=== PATIENT | female | born 1955 | race Caucasian/White ===

== ENCOUNTER 2020-03-18 08:43 | Inpatient (IN) | payer MEDICARE, OTHER ==
[~2020-03-18] VITALS: Ht 167.6 cm; Wt 47.6 kg
[~2020-03-18 08:43] MED LIST: AMLO-212 PO; DICL100G34 TP; GABA-532 PO; LISI10TA5 PO; METO25TA20 PO; OMEP20CA15 PO; SIMV-49 PO; [UNRECOGNIZED DRUG - CODE] PO
--- NOTE | 2020-03-18 12:25 | NUR ---
Family Contact: SW contacted pts friend, Oksana Kirby ([phone]), who stated that she has not been very involved in the pts life but she does know that the pt has a supervisor case loading. SW inquired about placement and she stated that the pt is homeless.
--- NOTE | 2020-03-18 12:30 | NUR ---
diamond die maker note:Admitted a 65 y/o female on 5150 hold for DTS and GD ,per 5150 hold endorsing recent suicide attempt 4 days ago via 35 gabapentin residential case manager recommended coming to er complained of loneliness because limited family support ,she has no viable plan for self care. Patient has hx of HTN,Arthritis ,Gastric Ulcer ,hx of Fall .Patient on fall precaution ,allergy to codeine ,buspirone hydrocodone ,prednisone.Patient ambulatory with unsteady gait . and notified with admission orders ,patient seen by .Upon face to face assessment patient is alert and oriented x3 ,disorganized thoughts easily irritable denies si at this time ,disheveled and unkempt ,mood depressed fat affect ,patient stated " I wanted to kill myself and I hate myself,I am lonely ". Patient has discoloration in brigette upper and lower extremities .All belongings checked by staff ,patient's right hand book given and explained to patient able to verbalize understanding .Place patient on q15 minutes safety check.
--- NOTE | 2020-03-18 12:46 | NUR ---
Initial Discharge Plan: Pt is currently homeless and states that she wants to be placed in a nursing facility. SW will work with the pt and the MD regarding appropriate discharge planning. SW will form a safe and proper discharge.
[2020-03-18] MEDS ORDERED: MAG HYDROX/AL HYDROX/SIMETH 30 ML UDC PO PRN (13:00)
[2020-03-18] MEDS ORDERED: MAGNESIUM HYDROXIDE 30 ML UDC PO PRN (13:00)
[2020-03-18] MEDS ORDERED: ACETAMINOPHEN 325 MG TABLET PO PRN (13:00)
[2020-03-18] MEDS ORDERED: BLOOD SUGAR DIAGNOSTIC 1 EACH STRIP IN ONE (13:00)
[2020-03-18] MEDS ORDERED: NAPR-1009 PO (14:20)
[2020-03-18] MEDS ORDERED: PANT40TA49 PO (14:20)
[2020-03-18] MEDS ORDERED: SERT100T PO (14:21)
[2020-03-18 18:09] VITALS: BP 144/72
[2020-03-18 20:32] VITALS: BP 120/65
[2020-03-18] MEDS ORDERED: GABAPENTIN 100 MG CAPSULE PO SCH (21:00)
[2020-03-18] MEDS: METOPROLOL TARTRATE 25 MG TABLET PO SCH (21:12)
[2020-03-18] MEDS: SIMVASTATIN 20 MG TABLET PO SCH (21:13)
[2020-03-18] MEDS: ZOLPIDEM TARTRATE 5 MG TABLET PO PRN (21:28)
--- NOTE | 2020-03-18 21:28 | NUR ---
GPS RN NOTE: INSOMNIA PT C/O OF INABILITY TO SLEEP, REQUESTED DAVID, PT VSS AT THIS TIME, ADMIN AMBIEN 5 MG PRN @ 2127, WILL REASSESS AND CONTINUE TO MONITOR Q15MIN FOR SAFETY AND BEHAVIOR,.
[2020-03-19 06:24] LABS: BASOPHILS # (AUTO) 0.1 /CMM (0.0-0.2); BASOPHILS % (AUTO) 0.8 % (0.0-2.0); EOSINOPHILS % (AUTO) 8.4 % (0.0-6.0); HEMATOCRIT 29 % (33-45); LYMPHOCYTES # (AUTO) 2.1 /CMM (0.8-4.8); LYMPHOCYTES % (AUTO) 27.8 % (20.0-44.0); MEAN CORPUSCULAR HGB CONC 34 g/dl (31.0-36.0); MEAN CORPUSCULAR VOLUME 93 fL (82-100); MONOCYTES # (AUTO) 0.7 /CMM (0.1-1.30); MONOCYTES % (AUTO) 8.6 % (2.0-12.0); NEUTROPHILS # (AUTO) 4.2 /CMM (1.8-8.9); NEUTROPHILS % (AUTO) 54.4 % (43.0-81.0); PLATELET COUNT (AUTO) 345 /CMM (150-450); RED BLOOD CELL COUNT(AUTO) 3.15 MIL/uL (4.0-5.2); WHITE BLOOD COUNT (AUTO) 7.7 K/uL (4.3-11.0)
[2020-03-19] MEDS: PANTOPRAZOLE 40 MG TABLET.DR PO SCH (06:33)
[2020-03-19 06:37] LABS: CREATININE 1.3 mg/dL (0.6-1.3); PHOSPHORUS 4.1 mg/dL (2.5-4.9)
[2020-03-19 06:40] LABS: THYROID STIMULATING HORMONE 1.655 uIU/mL (0.358-3.74)
[2020-03-19] MEDS: NAPROXEN 500 MG TABLET PO SCH ×2 (08:11→16:13)
[2020-03-19] MEDS: AMLODIPINE BESYLATE 5 MG TABLET PO SCH (08:11)
[2020-03-19] MEDS: LISINOPRIL (10MG) 10 MG TABLET PO SCH (08:11)
[2020-03-19] MEDS: METOPROLOL TARTRATE 25 MG TABLET PO SCH ×2 (08:12→21:00)
[2020-03-19 08:23] VITALS: BP 137/80
--- NOTE | 2020-03-19 09:00 | NUR ---
RN NOTE- PT ALERT ORIENTED TO PERSON PLACE TIME AND PURPOSE. STATES SHE IS "DISGUSTED WITH MYSELF THAT I DRANK AGAIN" PT DENIES ACTIVE SI THOUGH STATES SHES'QUITE DEPRESSED" PO INTAKE GOOD MED COMPLIANT INTERACTIVE SELECTIVELY
[2020-03-19] MEDS: GABAPENTIN 100 MG CAPSULE PO SCH ×3 (09:06→16:13)
--- NOTE | 2020-03-19 09:59 | NUR ---
Substance Abuse Intervention: BRITTNEY conducted a substance abuse intervention with the pt due to her history of alcohol abuse.
--- NOTE | 2020-03-19 10:02 | NUR ---
SW Discharge Planning with MD: BRITTNEY spoke with the pts MD regarding pts discharge plan and he stated that he is not currently certain if the pt will be discharged to a rehab center or a SNF. He stated that he will work with the pt for a few more days and will inform the SW where to refer the pt.
--- NOTE | 2020-03-19 10:34 | NUR ---
RN NOTE- PT C/O DYSPEPSIA. MAALOX 30ML GIVEN AT THIS TIME
[2020-03-19] MEDS: SERTRALINE HCL 50 MG TABLET PO SCH (16:07)
[2020-03-19 16:09] VITALS: BP 104/44
[2020-03-19 20:22] VITALS: BP 113/44
[2020-03-19] MEDS: ZOLPIDEM TARTRATE 5 MG TABLET PO PRN (21:08)
[2020-03-19] MEDS: SIMVASTATIN 20 MG TABLET PO SCH (21:08)
--- NOTE | 2020-03-19 21:09 | NUR ---
GPS RN NOTE: DID NOT GIVE PT HER SCHEDULED METOPROLOL, PT B/P WAS 96/62, HR 67, PT STATED THATS A LITTLE LOW FOR ME I RATHER TAKE THE AMBIEN AND HOLD THE BP MED. NO DISTRESS NOTED, ADMIN AMBIEN @ 9061, WILL REASSESS AND CONTINUE TO MONITOR Q15MIN FOR SAFETY AND BEHAVIOR.
[2020-03-19 21:11] VITALS: BP 95/62
[2020-03-20] MEDS: PANTOPRAZOLE 40 MG TABLET.DR PO SCH (06:31)
[2020-03-20 08:00] VITALS: BP 135/74
[2020-03-20] MEDS: NAPROXEN 500 MG TABLET PO SCH ×2 (09:38→17:13)
[2020-03-20] MEDS: SERTRALINE HCL 50 MG TABLET PO SCH (09:38)
[2020-03-20] MEDS: AMLODIPINE BESYLATE 5 MG TABLET PO SCH (09:38)
[2020-03-20] MEDS: LISINOPRIL (10MG) 10 MG TABLET PO SCH (09:39)
[2020-03-20] MEDS: METOPROLOL TARTRATE 25 MG TABLET PO SCH ×2 (09:39→21:00)
[2020-03-20] MEDS: GABAPENTIN 100 MG CAPSULE PO SCH ×3 (09:39→17:13)
--- NOTE | 2020-03-20 10:00 | NUR ---
Individual Intervention with the pt: SW met with the pt at bedside and assessed the pt for suicidality. Pt stated that she does not currently have suicidal ideation with a plan but states that she needs help. Pt states that she feels alone after all of her family has passed and that she does not have any resources. Pt states that she no longer has a car and that she has no where to go. Pt states that she spent 71 days at [facility] but then she went to to a sober living and relapsed before getting kicked out. Pt states that this time she would like to try a SNF.
[2020-03-20] MEDS: LORAZEPAM 0.5 MG TABLET PO PRN (14:30)
--- NOTE | 2020-03-20 14:31 | NUR ---
RN NOTE:Patient c/o anxiety medicated with ativan 1mg po x1 will continue to monitor .
[2020-03-20 17:00] VITALS: BP 104/58
[2020-03-20 20:45] VITALS: BP 92/49
[2020-03-20] MEDS: SIMVASTATIN 20 MG TABLET PO SCH (21:05)
--- NOTE | 2020-03-20 21:07 | NUR ---
GPS-RN NOTE: BP MED HELD METOPROLOL 25MG PO HELD D/T DECREASED BP. Addendum: 03/20/20 at 2236 by URI LICONA RN BP 92/49 PULSE 60
[2020-03-20 21:28] VITALS: BP 107/71
[2020-03-20] MEDS: ZOLPIDEM TARTRATE 5 MG TABLET PO PRN (21:32)
--- NOTE | 2020-03-20 21:32 | NUR ---
GPS-RN NOTE: PATIENT C/O INABILITY TO SLEEP. ADMINISTERED AMBIEN 5MG PO ORDERED PER PT'S REQUEST. WILL CONTINUE TO MONITOR FOR PATIENT'S SAFETY.
[2020-03-21] MEDS: PANTOPRAZOLE 40 MG TABLET.DR PO SCH (07:21)
[2020-03-21 08:00] VITALS: BP 108/63
[2020-03-21] MEDS: SERTRALINE HCL 50 MG TABLET PO SCH (08:15)
[2020-03-21] MEDS: NAPROXEN 500 MG TABLET PO SCH ×2 (08:15→16:55)
[2020-03-21] MEDS: METOPROLOL TARTRATE 25 MG TABLET PO SCH ×2 (08:15→21:00)
[2020-03-21] MEDS: LISINOPRIL (10MG) 10 MG TABLET PO SCH (08:16)
[2020-03-21] MEDS: AMLODIPINE BESYLATE 5 MG TABLET PO SCH (08:16)
[2020-03-21] MEDS: GABAPENTIN 100 MG CAPSULE PO SCH ×3 (08:17→16:34)
[2020-03-21] MEDS: LORAZEPAM 0.5 MG TABLET PO PRN (12:35)
--- NOTE | 2020-03-21 12:38 | NUR ---
RN-CO: ATIVAN 1 MG PO GIVEN FOR C/O ANXIETY M/B RESTLESSNESS.
--- NOTE | 2020-03-21 14:05 | NUR ---
SNF Referral: BRITTNEY faxed a referral to the following two facilities listed below: [facility] with attn to Monet to the fax number: [phone] [facility] with attn to Daniella to the fax number: [phone]. Addendum: 03/26/20 at 1017 by DINESH WILLIAMSON [facility] unable to accept patient's due to lockdown. [facility] unable to accept due to only accepting COVID positive patients.
--- NOTE | 2020-03-21 14:06 | NUR ---
RN-CO: PER DR JILLIAN NEAL ORDER ENSURE LIVE BID, NOTED.
[2020-03-21 16:00] VITALS: BP 121/82
[2020-03-21] MEDS: ENSURE ENLIVE CHOC 237 ML CAN PO SCH (17:00)
--- NOTE | 2020-03-21 19:30 | NUR ---
GPS RN NOTE, RECEIVED PATIENT AWAKE AND IN BED, NO S/S OR COMPLAINTS OF PAIN AT THIS TIME. PATIENT IS DISPLAYING NO S/S OF APPARENT DISTRESS AT THIS TIME. PATIENT BREATHING IS UNLABORED WITH EQUAL RISE AND FALL OF THE CHEST. PATIENT IS ALERT AND ORIENTED X 4 ON ROOM AIR WITH A SPO2 98%. PATIENT IS COMPLIANT WITH MEDICATIONS, ANXIOUS AT TIMES, INTERACTIVE, AND COOPERATIVE. PATIENT DENIES SUICIDAL AND HOMICIDAL IDEATIONS AT THIS TIME. PATIENT ASSISTED WITH TURNING AND REPOSITIONING Q2HR AND PRN FOR COMFORT AND CIRCULATION. PATIENT HAS NO NEEDS AT THIS TIME. PATIENT EDUCATED ON THE USE OF THE CALL PATEL. PATIENT BED SIDE RAILS UP X 2 FOR SAFETY. PATIENT BED IS LOCKED, LOW, WITH BED ALARM ON. WILL CONTINUE TO MONITOR THIS PATIENT Q15 MINUTES WITH THE HELP OF STAFF TO MAINTAIN SAFETY.
[2020-03-21 19:35] VITALS: BP 132/67
[2020-03-21] MEDS: SIMVASTATIN 20 MG TABLET PO SCH (21:00)
[2020-03-21] MEDS: ZOLPIDEM TARTRATE 5 MG TABLET PO PRN (21:38)
--- NOTE | 2020-03-21 21:38 | NUR ---
GPS RN NOTE, PATIENT HAS A COMPLAINT OF NOT BEING ABLE TO SLEEP AND IS REQUESTING AMBIEN AT THIS TIME. PATIENT VITAL SIGNS ARE STABLE. GAVE AMBIEN 5MG PO HS PRN ORDERED. WILL REASSESS FOR INSOMNIA AND I WILL CONTINUE TO MONITOR THIS PATIENT.
[2020-03-22] MEDS: PANTOPRAZOLE 40 MG TABLET.DR PO SCH (07:33)
[2020-03-22 08:00] VITALS: BP 111/63
[2020-03-22] MEDS: ENSURE ENLIVE CHOC 237 ML CAN PO SCH ×2 (08:06→16:03)
[2020-03-22] MEDS: NAPROXEN 500 MG TABLET PO SCH ×2 (08:37→16:03)
[2020-03-22] MEDS: METOPROLOL TARTRATE 25 MG TABLET PO SCH ×2 (08:38→21:03)
[2020-03-22] MEDS: AMLODIPINE BESYLATE 5 MG TABLET PO SCH (08:38)
[2020-03-22] MEDS: GABAPENTIN 100 MG CAPSULE PO SCH ×3 (08:38→16:03)
[2020-03-22] MEDS: LISINOPRIL (10MG) 10 MG TABLET PO SCH (08:38)
[2020-03-22] MEDS: SERTRALINE HCL 50 MG TABLET PO SCH (08:38)
--- NOTE | 2020-03-22 09:00 | NUR ---
RN NOTE- PT ALERT ORIENTED TO PERSON PLACE TIME PURPOSE, PO INTAKE, MED COMPLIANT DENIES ALL AT PRESENT ISOLATIVE DEPRESSED
--- NOTE | 2020-03-22 11:00 | NUR ---
ERIBERTO NOTE-MN Addendum: 03/22/20 at 1103 by KUNAL SANDRA RN ERIBERTO NOTE- C/O ANXIETY. ATIVAN 1MG GIVEN
[2020-03-22] MEDS: LORAZEPAM 0.5 MG TABLET PO PRN (11:02)
[2020-03-22 16:00] VITALS: BP 123/69
--- NOTE | 2020-03-22 19:30 | NUR ---
GPS RN NOTE, RECEIVED PATIENT AWAKE AND IN BED, NO S/S OR COMPLAINTS OF PAIN AT THIS TIME. PATIENT IS DISPLAYING NO S/S OF APPARENT DISTRESS AT THIS TIME. PATIENT BREATHING IS UNLABORED WITH EQUAL RISE AND FALL OF THE CHEST. PATIENT IS ALERT AND ORIENTED X 4 ON ROOM AIR WITH A SPO2 99%. PATIENT IS COMPLIANT WITH MEDICATIONS, ANXIOUS AT TIMES, INTERACTIVE, AND COOPERATIVE. PATIENT DENIES SUICIDAL AND HOMICIDAL IDEATIONS AT THIS TIME. PATIENT ASSISTED WITH TURNING AND REPOSITIONING Q2HR AND PRN FOR COMFORT AND CIRCULATION. PATIENT HAS NO NEEDS AT THIS TIME. PATIENT EDUCATED ON THE USE OF THE CALL PATEL. PATIENT BED SIDE RAILS UP X 2 FOR SAFETY. PATIENT BED IS LOCKED, LOW, WITH BED ALARM ON. WILL CONTINUE TO MONITOR THIS PATIENT Q15 MINUTES WITH THE HELP OF STAFF TO MAINTAIN SAFETY.
[2020-03-22] MEDS: SIMVASTATIN 20 MG TABLET PO SCH (21:02)
[2020-03-22] MEDS: ZOLPIDEM TARTRATE 5 MG TABLET PO PRN (21:35)
[2020-03-23] MEDS: PANTOPRAZOLE 40 MG TABLET.DR PO SCH (07:12)
[2020-03-23] MEDS: ENSURE ENLIVE CHOC 237 ML CAN PO SCH ×2 (07:49→17:27)
[2020-03-23 08:00] VITALS: BP 112/62
[2020-03-23] MEDS: NAPROXEN 500 MG TABLET PO SCH ×2 (08:08→16:03)
[2020-03-23] MEDS: AMLODIPINE BESYLATE 5 MG TABLET PO SCH (08:08)
[2020-03-23] MEDS: SERTRALINE HCL 50 MG TABLET PO SCH (08:08)
[2020-03-23] MEDS: LISINOPRIL (10MG) 10 MG TABLET PO SCH (08:08)
[2020-03-23] MEDS: GABAPENTIN 100 MG CAPSULE PO SCH ×3 (08:08→16:03)
[2020-03-23] MEDS: METOPROLOL TARTRATE 25 MG TABLET PO SCH ×2 (08:09→21:00)
--- NOTE | 2020-03-23 10:10 | NUR ---
RN-CO: PT REQUESTED FOR ATIVAN FOR ANXIETY.
[2020-03-23] MEDS: LORAZEPAM 0.5 MG TABLET PO PRN ×2 (10:18→16:03)
--- NOTE | 2020-03-23 13:03 | NUR ---
RN-CO: DR WALSH MADE AWARE OF H&h LEVEL. NO NEW ORDERS AT THIS TIME.
[2020-03-23 16:00] VITALS: BP 119/61
--- NOTE | 2020-03-23 16:04 | NUR ---
RN-CO: PATIENT REQUESTED FOR ATIVAN 1MG PO FOR ANXIETY.
[2020-03-23 20:00] VITALS: BP 114/67
[2020-03-23] MEDS: SIMVASTATIN 20 MG TABLET PO SCH (21:00)
[2020-03-23 21:06] VITALS: BP 114/67
[2020-03-23] MEDS: ZOLPIDEM TARTRATE 5 MG TABLET PO PRN (21:25)
[2020-03-24] MEDS: PANTOPRAZOLE 40 MG TABLET.DR PO SCH (07:35)
[2020-03-24 08:00] VITALS: BP 100/61
[2020-03-24] MEDS: GABAPENTIN 100 MG CAPSULE PO SCH ×3 (08:03→16:19)
[2020-03-24] MEDS: METOPROLOL TARTRATE 25 MG TABLET PO SCH ×2 (08:04→20:40)
[2020-03-24] MEDS: NAPROXEN 500 MG TABLET PO SCH ×2 (08:04→16:19)
[2020-03-24] MEDS: AMLODIPINE BESYLATE 5 MG TABLET PO SCH ×2 (08:04→09:00)
[2020-03-24] MEDS: SERTRALINE HCL 50 MG TABLET PO SCH (08:05)
[2020-03-24] MEDS: LISINOPRIL (10MG) 10 MG TABLET PO SCH (08:05)
[2020-03-24] MEDS: ENSURE ENLIVE CHOC 237 ML CAN PO SCH ×2 (08:05→17:00)
[2020-03-24] MEDS: LORAZEPAM 0.5 MG TABLET PO PRN ×3 (10:07→23:17)
--- NOTE | 2020-03-24 10:07 | NUR ---
RN NOTE:Patient c/o anxiety medicated with ativan 1mg po x1.Will continue to monitor anxiety.
[2020-03-24 16:00] VITALS: BP 128/50
--- NOTE | 2020-03-24 16:20 | NUR ---
RN NOTE:PATIENT C/O ANXIETY MEDICATED WITH ATIVAN 1MG PO X1.
[2020-03-24 20:27] VITALS: BP 119/67
[2020-03-24] MEDS: SIMVASTATIN 20 MG TABLET PO SCH (21:05)
[2020-03-24] MEDS: ZOLPIDEM TARTRATE 5 MG TABLET PO PRN (21:30)
--- NOTE | 2020-03-24 21:30 | NUR ---
GPS-RN NOTE: INSOMNIA PATIENT C/O INABILITY TO SLEEP. ADMINISTERED AMBIEN 5MG PO ORDERED PER PT'S REQUEST. WILL CONTINUE TO MONITOR FOR PATIENT'S SAFETY.
--- NOTE | 2020-03-24 23:17 | NUR ---
GPS-RN NOTE: ANXIETY PATIENT C/O FEELING ANXIOUS. PATIENT REQUESTED FOR ATIVAN. ADMINISTERED ATIVAN 1MG PO ORDERED. WILL CONTINUE TO MONITOR FOR PATIENT'S SAFETY.
[2020-03-25] MEDS: PANTOPRAZOLE 40 MG TABLET.DR PO SCH (07:20)
[2020-03-25] MEDS: ENSURE ENLIVE CHOC 237 ML CAN PO SCH ×2 (07:39→17:07)
[2020-03-25] MEDS: SERTRALINE HCL 50 MG TABLET PO SCH (08:03)
[2020-03-25] MEDS: GABAPENTIN 100 MG CAPSULE PO SCH (08:03)
[2020-03-25] MEDS: NAPROXEN 500 MG TABLET PO SCH ×2 (08:03→16:03)
[2020-03-25] MEDS: LISINOPRIL (10MG) 10 MG TABLET PO SCH (08:04)
[2020-03-25] MEDS: METOPROLOL TARTRATE 25 MG TABLET PO SCH ×2 (08:04→21:14)
[2020-03-25] MEDS: AMLODIPINE BESYLATE 5 MG TABLET PO SCH (08:05)
[2020-03-25 08:11] VITALS: BP 114/70
[2020-03-25] MEDS: LORAZEPAM 0.5 MG TABLET PO PRN ×2 (09:48→22:23)
--- NOTE | 2020-03-25 09:48 | NUR ---
RNAdielCO: ATIVAN 1MG PO GIVEN FOR C/O ANXIETY.
[2020-03-25] MEDS: GABAPENTIN 300 MG CAPSULE PO SCH ×2 (12:06→16:03)
[2020-03-25 15:19] VITALS: BP 100/65
[2020-03-25] MEDS: ACETAMINOPHEN ES 500 MG TABLET PO PRN (16:37)
--- NOTE | 2020-03-25 16:41 | NUR ---
RN-CO: Patient requested for Tylenol ES for headache 06/29.
[2020-03-25] MEDS: SIMVASTATIN 20 MG TABLET PO SCH (21:13)
[2020-03-25] MEDS: ZOLPIDEM TARTRATE 5 MG TABLET PO PRN (21:14)
[2020-03-26] MEDS: PANTOPRAZOLE 40 MG TABLET.DR PO SCH (07:03)
[2020-03-26 08:00] VITALS: BP 110/45
[2020-03-26] MEDS: METOPROLOL TARTRATE 25 MG TABLET PO SCH ×2 (08:22→20:59)
[2020-03-26] MEDS: AMLODIPINE BESYLATE 5 MG TABLET PO SCH (08:23)
[2020-03-26] MEDS: LISINOPRIL (10MG) 10 MG TABLET PO SCH (08:23)
[2020-03-26] MEDS: NAPROXEN 500 MG TABLET PO SCH ×2 (08:24→16:01)
[2020-03-26] MEDS: ENSURE ENLIVE CHOC 237 ML CAN PO SCH ×2 (08:24→17:50)
[2020-03-26] MEDS: SERTRALINE HCL 50 MG TABLET PO SCH (08:24)
[2020-03-26] MEDS: GABAPENTIN 300 MG CAPSULE PO SCH ×3 (08:24→16:01)
[2020-03-26] MEDS: hydrOXYzine PAMOATE 25 MG CAPSULE PO PRN ×3 (10:32→22:31)
[2020-03-26 18:00] VITALS: BP 151/68
[2020-03-26] MEDS: SIMVASTATIN 20 MG TABLET PO SCH (20:59)
[2020-03-26] MEDS: ZOLPIDEM TARTRATE 5 MG TABLET PO PRN (20:59)
[2020-03-26 21:10] VITALS: BP 122/67
[2020-03-27] MEDS: PANTOPRAZOLE 40 MG TABLET.DR PO SCH (06:53)
[2020-03-27 07:42] VITALS: BP 95/55
[2020-03-27] MEDS: GABAPENTIN 300 MG CAPSULE PO SCH ×2 (08:13→16:07)
[2020-03-27] MEDS: NAPROXEN 500 MG TABLET PO SCH ×2 (08:13→16:07)
[2020-03-27] MEDS: LISINOPRIL (10MG) 10 MG TABLET PO SCH (08:14)
[2020-03-27] MEDS: METOPROLOL TARTRATE 25 MG TABLET PO SCH ×2 (08:15→21:00)
[2020-03-27] MEDS: SERTRALINE HCL 50 MG TABLET PO SCH (08:15)
[2020-03-27] MEDS: AMLODIPINE BESYLATE 5 MG TABLET PO SCH (08:15)
[2020-03-27] MEDS: hydrOXYzine PAMOATE 25 MG CAPSULE PO PRN ×3 (08:19→19:36)
[2020-03-27] MEDS: ENSURE ENLIVE CHOC 237 ML CAN PO SCH ×2 (08:28→17:00)
--- NOTE | 2020-03-27 12:13 | NUR ---
SW DISCHARGE NOTE (EARLY ENTRY for 03/28/20) Patient will be discharged to retirement facility, [place] [address] ([phone]) via Ambulance transportation. Please arrange transportation at 11:00am today. Exercise Science Internship spoke with Juan, Sharepoint Web Developer at [facility] ([phone]), and he confirmed that patient will be accepted at their facility today. Patient does not have any family or next of kin contacts at this time. Patient is alert and oriented x4. Patient is not able to plan for self-care at this time but is willing to accept care provided for her at the facility. Patient denies suicidal or homicidal ideation. Patient is aware and agreeable with discharge plans. Patient presents with appropriate mood and congruent affect. Patient will follow-up with Psychiatrist Dr. Wall and Physical Anthropologist Dr. Serrano at [place] [phone] ([phone]). Patient signed the homeless waiver upon discharge and a copy was placed in the chart. Homeless resources were provided and include [address] information line for shelters and homeless resources. A copy of all resources given to patient was also placed in the chart.
--- NOTE | 2020-03-27 14:01 | NUR ---
RN-CO: Patient requested for Vistaril for anxiety.
[2020-03-27] MEDS: ACETAMINOPHEN ES 500 MG TABLET PO PRN (15:45)
[2020-03-27 18:06] VITALS: BP 112/58
--- NOTE | 2020-03-27 19:30 | NUR ---
GPS RN NOTE, RECEIVED PATIENT AWAKE AND IN BED, NO S/S OR COMPLAINTS OF PAIN AT THIS TIME. PATIENT IS DISPLAYING NO S/S OF APPARENT DISTRESS AT THIS TIME. PATIENT BREATHING IS UNLABORED WITH EQUAL RISE AND FALL OF THE CHEST. PATIENT IS ALERT AND ORIENTED X 4 ON ROOM AIR WITH A SPO2 99%. PATIENT IS COMPLIANT WITH MEDICATIONS, ANXIOUS AT TIMES, INTERACTIVE, NEEDY, AND COOPERATIVE. PATIENT DENIES SUICIDAL AND HOMICIDAL IDEATIONS AT THIS TIME. PATIENT ASSISTED WITH TURNING AND REPOSITIONING Q2HR AND PRN FOR COMFORT AND CIRCULATION. PATIENT HAS NO NEEDS AT THIS TIME. PATIENT EDUCATED ON THE USE OF THE CALL PATEL. PATIENT BED SIDE RAILS UP X 2 FOR SAFETY. PATIENT BED IS LOCKED, LOW, WITH BED ALARM ON. WILL CONTINUE TO MONITOR THIS PATIENT Q15 MINUTES WITH THE HELP OF STAFF TO MAINTAIN SAFETY.
--- NOTE | 2020-03-27 19:36 | NUR ---
GPS RN NOTE, PATIENT HAS A COMPLAINT OF FEELING ANXIOUS AND IS REQUESTING VISTARIL AT THIS TIME. PATIENT VITAL SIGNS ARE STABLE. GAVE VISTARIL 25MG PO Q6HR PRN ORDERED. WILL REASSESS FOR ANXIETY AND I WILL CONTINUE TO MONITOR THIS PATIENT.
[2020-03-27] MEDS: SIMVASTATIN 20 MG TABLET PO SCH (21:00)
[2020-03-27] MEDS: ZOLPIDEM TARTRATE 5 MG TABLET PO PRN (21:30)
[2020-03-28] MEDS: hydrOXYzine PAMOATE 25 MG CAPSULE PO PRN ×2 (07:04→13:07)
[2020-03-28] MEDS: PANTOPRAZOLE 40 MG TABLET.DR PO SCH (07:04)
[2020-03-28] MEDS: ENSURE ENLIVE CHOC 237 ML CAN PO SCH (07:33)
[2020-03-28 08:00] VITALS: BP 125/70
[2020-03-28] MEDS: SERTRALINE HCL 50 MG TABLET PO SCH (08:05)
[2020-03-28] MEDS: AMLODIPINE BESYLATE 5 MG TABLET PO SCH (08:05)
[2020-03-28] MEDS: NAPROXEN 500 MG TABLET PO SCH (08:05)
[2020-03-28] MEDS: LISINOPRIL (10MG) 10 MG TABLET PO SCH (08:05)
[2020-03-28 08:06] VITALS: BP 125/70
[2020-03-28] MEDS: GABAPENTIN 300 MG CAPSULE PO SCH (08:06)
[2020-03-28] MEDS: METOPROLOL TARTRATE 25 MG TABLET PO SCH (08:06)
--- NOTE | 2020-03-28 08:51 | NUR ---
RN-CO: Patient is alert and oriented x 4, cooperative to care and able to make needs known. She is aware of her discharge to [facility]. She denies suicidal and homicidal ideations. Denies auditory and visual hallucinations. Her affect is bright. No acute distress noted. Medically cleared by Dr Aakash Hanley. Dr Wall ordered to discharge patient today. Report was given to Anita WEI [phone]. rigging up worker time by [employer] trip # [id number] will be at 1430.All valuables and belongings will be given back to her.
--- NOTE | 2020-03-28 11:40 | NUR ---
RN-CO: DISCHARGE PAPERS WERE DISCUSSED TO PATIENT INCL, HER REFERRALS TO "HOMELESS FACILITIES" , SHE IS AWARE THAT SHE IS GOING TO [facility] AND DR RIOJAS AND DR VALDEZ WILL BE HER PHYSICIANS AND SHE VERBALIZED UNDERSTANDING.
--- NOTE | 2020-03-28 12:00 | NUR ---
RN-CO: Patient was seen by Dr Aakash Cheek and medically cleared her for discharge.
--- NOTE | 2020-03-28 15:14 | NUR ---
RN-CO: PT WAS PICKED UP BY [facility] REPORT WAS GIVEN TO THEM. ALL BELONGINGS WAS GIVEN BACK TO THE PT. PT IS AWARE OF THE HOMELESS REFERRAL AND HER DOCTRS THAT WILL SEE HER IN SNF.
== END 2020-03-28 15:18 | DRG 885 ==
LOC: GPS 11:34
PROVIDERS: ADMIT Psychiatry & Neurology Psychiatry
DX: F33.2 Major depressive disorder, recurrent severe without psychotic features (principal); R45.851 Suicidal ideations; F41.9 Anxiety disorder, unspecified; I10 Essential (primary) hypertension; K21.9 Gastro-esophageal reflux disease without esophagitis; F10.20 Alcohol dependence, uncomplicated; Y90.9 Presence of alcohol in blood, level not specified; Z91.14 Patient's other noncompliance with medication regimen; Z91.5 Personal history of self-harm; G62.9 Polyneuropathy, unspecified; M19.90 Unspecified osteoarthritis, unspecified site
CPT/HCPCS: 36415; 80048-TC; 80061-TC; 83735-TC; 84100-TC; 84443-TC; 85025-TC; 87081-TC; 97112-TC; 97116-TC; 97530-TC; Q0177

== ENCOUNTER 2020-11-28 21:33 | Inpatient (IN) | payer MEDICARE, OTHER ==
[~2020-11-28] VITALS: Ht 167.6 cm; Wt 47.6 kg
[~2020-11-28 21:33] MED LIST changes: -DICL100G34 TP; +LISI10TA29 PO; -LISI10TA5 PO; +NAPR-1009 PO; -OMEP20CA15 PO; +PANT40TA49 PO; +SERT100T PO
--- NOTE | 2020-11-28 22:52 | NUR ---
URINE COLLECTED AND SENT TO LAB
[2020-11-28 22:57] LABS: BILIRUBIN,URINE Negative (NEGATIVE); COLOR,URINE YELLOW (YELLOW); LEUKOCYTE ESTERASE ,URINE Negative (NEGATIVE); NITRITE, URINE Negative (NEGATIVE); PH,URINE 6.5 (5.0-8.0); PROTEIN,URINE Negative (NEGATIVE); UGLUCOSE Negative (NEGATIVE); UROBILINOGEN,URINE 0.2 EU/dL (0.2)
[2020-11-28 23:09] LABS: BASOPHILS # (AUTO) 0.1 K/uL (0.0-0.2); BASOPHILS % (AUTO) 0.9 % (0.0-2.0); HEMATOCRIT 32 % (33-45); HEMOGLOBIN 10.6 g/dL (11.5-14.8); LYMPHOCYTES # (AUTO) 3.6 K/uL (0.8-4.8); LYMPHOCYTES % (AUTO) 36.2 % (20.0-44.0); MEAN CORPUSCULAR HGB CONC 33 g/dl (31.0-36.0); MEAN CORPUSCULAR VOLUME 86 fL (82-100); MONOCYTES # (AUTO) 0.7 K/uL (0.1-1.30); MONOCYTES % (AUTO) 7.3 % (2.0-12.0); NEUTROPHILS # (AUTO) 4.4 K/uL (1.8-8.9); NEUTROPHILS % (AUTO) 44.6 % (43.0-81.0); PLATELET COUNT (AUTO) 361 K/uL (150-450); RED BLOOD CELL COUNT(AUTO) 3.69 MIL/uL (4.0-5.2); WHITE BLOOD COUNT (AUTO) 9.9 K/uL (4.3-11.0)
--- NOTE | 2020-11-28 23:14 | NUR ---
covid swab colleceted and sent to lab
[2020-11-28 23:19] LABS: CALCIUM, SERUM 8.8 mg/dL (8.5-10.1); CARBON DIOXIDE 23 mmol/L (21-32); CHLORIDE 105 mmol/L (98-107); CREATININE 1.1 mg/dL (0.6-1.3); GLUCOSE 88 mg/dL (74-106); POTASSIUM 4.4 mmol/L (3.5-5.1); SODIUM SERUM 140 mmol/L (136-145); UREA NITROGEN, BLOOD 27 mg/dL (7-18)
[2020-11-28 23:35] LABS: ALANINE AMINOTRANSFERASE 13 U/L (12-78); ALBUMIN 4.1 g/dL (3.4-5.0); ALCOHOL, BLOOD < 3 mg/dL (0-0); ALKALINE PHOSPHATASE 115 U/L (46-116); ASPARTATE AMINOTRANSFERASE 18 U/L (15-37); BILIRUBIN,DIRECT 0.1 mg/dL (0.0-0.2); BILIRUBIN,TOTAL 0.2 mg/dL (0.2-1.0); TOTAL PROTEIN, SERUM 7.6 g/dL (6.4-8.2)
[2020-11-28 23:36] LABS: ACETAMINOPHEN 0 ug/ml (10-30)
--- NOTE | 2020-11-28 23:39 | NUR ---
CALLED AIR CONDITIONING UNIT TESTER ART, ETA 1 HOUR
--- NOTE | 2020-11-29 00:28 | NUR ---
ART FROM CRISIS TEAM AT BED SIDE
[2020-11-29] MEDS ORDERED: oxyCODONE/APAP (5/325 MG) 1 UDTAB TABLET PO ONE (01:00)
[2020-11-29] MEDS ORDERED: oxyCODONE/APAP (5/325 MG) 1 UDTAB TABLET ONE (01:01)
--- NOTE | 2020-11-29 01:40 | NUR ---
REPORT GIVEN TO ERIBERTO GOMEZ
--- NOTE | 2020-11-29 02:15 | NUR ---
PATIENT TRANSFERRED TO GPS, PT VVS, NO ACUTE DISTRESS NOTED.
[2020-11-29] MEDS ORDERED: TEMAZEPAM 7.5 MG CAPSULE PO PRN (02:30)
[2020-11-29] MEDS ORDERED: MAGNESIUM HYDROXIDE 30 ML UDC PO PRN (02:30)
[2020-11-29] MEDS ORDERED: BLOOD SUGAR DIAGNOSTIC 1 EACH STRIP IN ONE (02:45)
--- NOTE | 2020-11-29 03:17 | NUR ---
GPS/RN GPS ADMISSION NOTE: RECEIVED PATIENT FROM E.. VIA WHEELCHAIR AT AROUND 0212. PATIENT IS BEING ADMITTED ON VOLUNTARY ADMISSION FOR MAJOR DEPRESSIVE DISORDER. PER CRISIS EVALUATION, PATIENT WAS BROUGHT TO [facility].. BY AMBULANCE FROM [facility] DUE TO FEELING VERY DEPRESSED AND HOPELESS. PATIENT'S BROTHER IN 2016 AND IT HAS BEEN VERY DIFFICULT FOR HER TO GET OVER THIS. PATIENT'S MOTHER IN 2014. IT WAS REPORTED FROM [facility] THAT PATIENT REFUSES CARE. UPON FACE TO FACE ASSESSMENT, PATIENT WAS AWAKE, ALERT, ORIENTED, CALM, COMFORTABLE, AND COOPERATIVE. PATIENT IS AMBULATORY, CONTINENT, BRP, DENIES NEED OF WALKER IN AID OF AMBULATION, ADMITS TO SLOW GAIT. PATIENT IS HIGH FALL RISK SHE HAD FALL 10 DAYS AGO AND SUSTAINED RIGHT WRIST FRACTURE FOR WHICH SHE WEARS SPLINT IN HER RIGHT WRIST. FALL PRECAUTIONS PER PROTOCOL WAS IMPLEMENTED. FURTHER ASSESSMENT, PATIENT VERBALIZES THAT SHE IS HAVING A HARD TIME COPING OVER THE OF HER BROTHER AND MOTHER AND SHE IS VERY DEPRESSED AND FEELS HOPELESS. PATIENT STATES THAT SHE NEEDS HELP FOR THESE, HENCE SHE IS HERE. PATIENT DENIES SUICIDAL AND HOMICIDAL IDEATION. PATIENT SIGNED ALL THE NECESSARY PAPER WORKS. PRESENTLY, PATIENT IS LYING IN BED APPEARS SLEEPING, APPEARS COMFORTABLE, NO SIGNS OF DISTRESS NOTED, BREATHING EVEN AND UNLABORED, CALL PATEL WITHIN REACH. ALL NEEDS ATTENDED AT THIS TIME. PATIENT IS UNDER THE PSYCHIATRIC CARE OF DR. CORDON AND THE MEDICAL CARE OF DR. JILLIAN MATIAS. PATIENT'S BELONGINGS WERE INVENTORIED AND CHECKED FOR CONTRABAND. ALL CONTRABAND REMOVED AND STORED IN PATIENT'S COFFEY WAY LOCKER. PATIENT'S ADVANCE DIRECTIVES PREFERENCE, IMMUNIZATIONS QUESTIONNAIRE NECESSARY PAPER WORKS COMPLETED. PATIENT'S SKIN ASSESSMENT COMPLETED. PATIENT WAS ORIENTED TO ROOM, FLOOR AND STAFF WITH ALL QUESTIONS ANSWERED. PATIENT WAS EDUCATED ON THE USE OF CALL PATEL. PATIENT'S BED SIDE RAIL UP X 2 FOR SAFETY. PATIENT'S BED IS LOCKED LOW AND I WILL CONTINUE TO MONITOR THIS PATIENT Q 15 MINUTES WITH THE HELP OF STAFF TO MAINTAIN SAFETY.
[2020-11-29] MEDS ORDERED: LORA10TA7 PO (03:31)
[2020-11-29 08:00] VITALS: BP 127/60
[2020-11-29] MEDS: ENSURE ENLIVE CHOC 237 ML CAN PO SCH ×2 (08:00→17:00)
[2020-11-29] MEDS ORDERED: OXYC20TA42 PO (09:35)
[2020-11-29] MEDS ORDERED: ONDA4TAB5 PO (09:35)
[2020-11-29] MEDS ORDERED: LORA-259 PO (09:35)
[2020-11-29] MEDS ORDERED: MAG-55 PO (09:35)
[2020-11-29] MEDS ORDERED: MELA5TAB PO (09:35)
[2020-11-29] MEDS ORDERED: MAGN400O6 PO (09:35)
[2020-11-29] MEDS ORDERED: SERT100T PO (09:36)
[2020-11-29] MEDS: ACETAMINOPHEN 325 MG TABLET PO PRN ×2 (11:18→21:33)
[2020-11-29] MEDS ORDERED: SERTRALINE HCL 50 MG TABLET PO SCH (13:00)
[2020-11-29] MEDS: MAG HYDROX/AL HYDROX/SIMETH 30 ML UDC PO PRN (14:30)
--- NOTE | 2020-11-29 15:31 | NUR ---
Initial D/C plan: The pt. currently resides at [facility] [[id number] [facility]; ([phone]). Pt. states she would like to return there when ready. BRITTNEY spoke with German from [facility] who stated that pt. may return when ready. BRITTNEY will continue to collaborate with Psychiatrist to plan a safe & proper D/C plan.
--- NOTE | 2020-11-29 15:32 | NUR ---
No Point of Contact: Pt. states she has no Conservator or DPOA. Pt. states she has no family only a best friend, Eric Anderson [phone] who should not be contact. Noted.
[2020-11-29 16:00] VITALS: BP 148/88
[2020-11-29] MEDS ORDERED: DULOXETINE HCL 30 MG CAPSULE.DR PO SCH (17:00)
[2020-11-29] MEDS: LORATADINE 10 MG TABLET PO SCH (17:32)
[2020-11-29] MEDS: AMLODIPINE BESYLATE 5 MG TABLET PO SCH (17:33)
[2020-11-29 20:54] VITALS: BP 141/90
[2020-11-29] MEDS: METOPROLOL TARTRATE 25 MG TABLET PO SCH (21:05)
[2020-11-29] MEDS ORDERED: SIMVASTATIN 20 MG TABLET PO SCH (22:00)
[2020-11-30 06:33] LABS: BASOPHILS # (AUTO) 0.1 K/uL (0.0-0.2); BASOPHILS % (AUTO) 0.7 % (0.0-2.0); EOSINOPHILS % (AUTO) 3.7 % (0.0-6.0); HEMATOCRIT 33 % (33-45); HEMOGLOBIN 11.2 g/dL (11.5-14.8); LYMPHOCYTES # (AUTO) 1.8 K/uL (0.8-4.8); LYMPHOCYTES % (AUTO) 22.3 % (20.0-44.0); MEAN CORPUSCULAR HGB CONC 34 g/dl (31.0-36.0); MEAN CORPUSCULAR VOLUME 85 fL (82-100); MONOCYTES # (AUTO) 0.5 K/uL (0.1-1.30); MONOCYTES % (AUTO) 6.6 % (2.0-12.0); NEUTROPHILS # (AUTO) 5.4 K/uL (1.8-8.9); NEUTROPHILS % (AUTO) 66.7 % (43.0-81.0); PLATELET COUNT (AUTO) 391 K/uL (150-450); RED BLOOD CELL COUNT(AUTO) 3.84 MIL/uL (4.0-5.2); WHITE BLOOD COUNT (AUTO) 8.1 K/uL (4.3-11.0)
[2020-11-30 06:47] LABS: CALCIUM, SERUM 9.2 mg/dL (8.5-10.1); CREATININE 0.7 mg/dL (0.6-1.3); POTASSIUM 3.6 mmol/L (3.5-5.1)
[2020-11-30] MEDS: MAG HYDROX/AL HYDROX/SIMETH 30 ML UDC PO PRN (07:04)
[2020-11-30 08:00] VITALS: BP 143/74
[2020-11-30] MEDS: ENSURE ENLIVE CHOC 237 ML CAN PO SCH ×2 (08:00→16:31)
[2020-11-30] MEDS: LORATADINE 10 MG TABLET PO SCH (08:30)
[2020-11-30] MEDS: AMLODIPINE BESYLATE 5 MG TABLET PO SCH (08:30)
[2020-11-30] MEDS: METOPROLOL TARTRATE 25 MG TABLET PO SCH ×2 (08:31→20:57)
--- NOTE | 2020-11-30 10:58 | NUR ---
GPS RN NOTE: T.O. ORDER LOCOMOTIVE LUBRICATING SYSTEMS CLERK INGRID ZOFRAN 4 MG PO PRN FOR NAUSEA
[2020-11-30] MEDS: ACETAMINOPHEN 325 MG TABLET PO PRN ×2 (11:07→20:57)
[2020-11-30] MEDS: ONDANSETRON 4 MG TAB.RAPDIS PO PRN ×2 (11:07→20:57)
[2020-11-30] MEDS: SERTRALINE HCL 50 MG TABLET PO SCH ×2 (12:48→13:09)
[2020-11-30 16:00] VITALS: BP 135/59
[2020-11-30] MEDS: DULOXETINE HCL 30 MG CAPSULE.DR PO SCH (16:32)
[2020-11-30 20:43] VITALS: BP 158/76
--- NOTE | 2020-11-30 20:57 | NUR ---
PT C/O NAUSEA PER PT REQUEST ZOFRAN 4MG PO Q6H PRN ADMINISTERED PER ORDER. WILL CONTINUE TO MONITOR
--- NOTE | 2020-11-30 20:57 | NUR ---
PT C/O ACHING PAIN ON HER FINGER PER PT REQUEST TYLENOL 650MG PO Q6H PRN ADMINISTERED PER ORDER. WILL CONTINUE TO MONITOR.
[2020-11-30] MEDS: SIMVASTATIN 20 MG TABLET PO SCH (21:02)
[2020-11-30] MEDS ORDERED: ATORVASTATIN 10 MG TABLET PO SCH (22:00)
--- NOTE | 2020-11-30 22:53 | NUR ---
MISTAKENLY DOCUMENTED ON MARIIA'S ACCOUNT THE PREVIOUS MORNING RN.
[2020-12-01 08:00] VITALS: BP 157/70
[2020-12-01] MEDS: ENSURE ENLIVE CHOC 237 ML CAN PO SCH ×2 (08:00→16:26)
[2020-12-01] MEDS: LORATADINE 10 MG TABLET PO SCH (08:56)
[2020-12-01] MEDS: AMLODIPINE BESYLATE 5 MG TABLET PO SCH (08:57)
[2020-12-01] MEDS: ACETAMINOPHEN 325 MG TABLET PO PRN (08:57)
[2020-12-01] MEDS: METOPROLOL TARTRATE 25 MG TABLET PO SCH ×2 (08:58→21:14)
[2020-12-01] MEDS: ONDANSETRON 4 MG TAB.RAPDIS PO PRN (09:14)
[2020-12-01 16:00] VITALS: BP 114/64
[2020-12-01] MEDS: DULOXETINE HCL 30 MG CAPSULE.DR PO SCH (16:26)
--- NOTE | 2020-12-01 20:00 | NUR ---
GPS-RN NOTES: PATIENT REFUSED WEEKLY SKIN ASSESSMENT.
[2020-12-01] MEDS: MAG HYDROX/AL HYDROX/SIMETH 30 ML UDC PO PRN (20:06)
--- NOTE | 2020-12-01 20:06 | NUR ---
GPS-RN NOTES: MAALOX 30ML PO GIVEN FOR INDIGESTION. WILL CONTINUE TO MONITOR.
[2020-12-01 20:44] VITALS: BP 153/71
[2020-12-01] MEDS: SIMVASTATIN 20 MG TABLET PO SCH (21:15)
--- NOTE | 2020-12-01 21:45 | NUR ---
GPS-RN NOTES: INSOMNIA PATIENT C/O INABILITY TO SLEEP. PRN RESTORIL 7.5MG PO GIVEN ORDERED PER PT'S REQUEST. WILL CONTINUE TO MONITOR.
[2020-12-02 08:00] VITALS: BP 158/79
[2020-12-02] MEDS: AMLODIPINE BESYLATE 5 MG TABLET PO SCH (08:50)
[2020-12-02] MEDS: LORATADINE 10 MG TABLET PO SCH (08:51)
[2020-12-02] MEDS: ENSURE ENLIVE CHOC 237 ML CAN PO SCH ×2 (08:51→17:17)
[2020-12-02] MEDS: METOPROLOL TARTRATE 25 MG TABLET PO SCH ×2 (08:51→22:01)
[2020-12-02] MEDS: MAG HYDROX/AL HYDROX/SIMETH 30 ML UDC PO PRN (08:54)
--- NOTE | 2020-12-02 09:00 | NUR ---
RN NOTE- RECEIVED PATIENT IN BED AWAKE ALERT, NO ACUTE DISTRESS NOTED. PT REMAINS DEPRESSED, ISOLATIVE, FLAT AFFECT, GUARDED, MED COMPLIANT. DENIES SI/HI/AVH AT THIS TIME. SAFETY PRECAUTIONS IN PLACE.VERBALIZATION OF FEELINGS ENCOURAGED. WILL CONTINUE TO MONITOR Q15 MIN ROUNDS FOR SAFETY AND BEHAVIOR.
[2020-12-02] MEDS: ACETAMINOPHEN 325 MG TABLET PO PRN ×2 (11:20→22:00)
--- NOTE | 2020-12-02 11:20 | NUR ---
PT C/O ACHING PAIN ON RIGHT WRIST. PER PT REQUEST TYLENOL 650MG PO Q6H PRN ADMINISTERED PER ORDER. WILL CONTINUE TO MONITOR.
[2020-12-02 16:00] VITALS: BP 143/72
[2020-12-02] MEDS: DULOXETINE HCL 30 MG CAPSULE.DR PO SCH (17:17)
--- NOTE | 2020-12-02 21:15 | NUR ---
GPS RN NOTE PT TRANSFERRED TO 320-1 GPS OVERFLOW. ALL THE BELONGING IS WITH THE PT. REPORT GIVEN TO NURSE GOODE.
[2020-12-02 21:30] VITALS: BP_SYST 141; BP_SYST 150; BP_DIAS 67; BP_DIAS 84
--- NOTE | 2020-12-02 21:30 | NUR ---
RN NOTE DR. CORDON NOTIFIED ABOUT PATIENT'S OVER FLOW TRANSFER TO [facility] ROOM 320-1.
--- NOTE | 2020-12-02 21:30 | NUR ---
GPSOV RECEIVED VIA WHEELCHAIR ACCPD BY STAFF A 65 Y/O FEMALE, VOLUNTARY PT OF GPS. PATIENT IS ALERT AND ORIENTED, BEHAVIOR ACCEPTABLE, CALM AND COOPERATIVE. ORIENTED TO ROOM FACILITIES. CALL LIGHT USE REVIEWED WITH PATIENT. STATED HAS STEADY GAIT. RIGHT WRIST WITH IMMOBILIZER, STATED FROM A PREVIOUS FALL. SAFETY PRECAUTIONS EMPHASIZED. DUE MEDS ADMINISTERED. ALL NEEDS ATTENDED, KEPT COMFORTABLE.
[2020-12-02] MEDS: SIMVASTATIN 20 MG TABLET PO SCH (22:01)
--- NOTE | 2020-12-03 00:54 | NUR ---
SAMMIE LOPEZ EASILY AROUSABLE. CLOSELY WATCHED
--- NOTE | 2020-12-03 02:56 | NUR ---
PT C/O PAIN OF 4/10, PER PT REQUEST TYLENOL 650MG PO Q6HR PRN ADMINISTERED PER ORDER. WILL CONTINUE TO MONITOR.
--- NOTE | 2020-12-03 06:45 | NUR ---
GPSOV REMAINS UNCHANGED, BEHAVIOR ACCEPTABLE
--- NOTE | 2020-12-03 07:32 | NUR ---
GPS/RN OPENING NOTES RECEIVED PATIENT ON BED AWAKE ALERT AND ORIENTED X 4. PATIENT IS ON ROOM AIR. PATIENT IN NO APPARENT RESPIRATORY DISTRESS NOTED. NO COMPLAINED OF PAIN NOTED AT THIS TIME. NO SUICIDAL THOUGHTS NOTED. WILL CONTINUE TO MONITOR.
[2020-12-03 08:00] VITALS: BP 150/73
[2020-12-03 09:00] VITALS: BP 150/73
[2020-12-03] MEDS: LORATADINE 10 MG TABLET PO SCH (09:17)
[2020-12-03] MEDS: AMLODIPINE BESYLATE 5 MG TABLET PO SCH (09:18)
[2020-12-03] MEDS: METOPROLOL TARTRATE 25 MG TABLET PO SCH ×2 (09:18→21:23)
[2020-12-03] MEDS: ENSURE ENLIVE CHOC 237 ML CAN PO SCH ×2 (09:19→17:00)
[2020-12-03] MEDS: ACETAMINOPHEN 325 MG TABLET PO PRN ×2 (09:23→21:23)
--- NOTE | 2020-12-03 09:23 | NUR ---
RN NOTES PATIENT COMPLAINED OF HEADACHE [id number] 1 TAB P.O. WILL CONTINUE TO MONITOR.
[2020-12-03] MEDS: MAG HYDROX/AL HYDROX/SIMETH 30 ML UDC PO PRN (10:21)
[2020-12-03] MEDS: DULOXETINE HCL 30 MG CAPSULE.DR PO SCH (12:36)
[2020-12-03 16:00] VITALS: BP 159/75
[2020-12-03] MEDS: LORAZEPAM 0.5 MG TABLET PO PRN (17:59)
--- NOTE | 2020-12-03 18:50 | NUR ---
GPS/RN CLOSING NOTES RECEIVED PATIENT ON BED AWAKE ALERT AND ORIENTED X 4. PATIENT IS ON ROOM AIR. PATIENT IN NO APPARENT RESPIRATORY DISTRESS NOTED. NO COMPLAINED OF PAIN NOTED AT THIS TIME. NO SUICIDAL THOUGHTS NOTED. ALL DUE MEDICATIONS WAS GIVEN. BED IN LOWEST POSITION AND LOCKED. SIDERAILS UP X2. CALL LIGHT WITHIN REACH. WILL ENDORSED TO HOSPITAL SECURITY OFFICER FOR BRIDGER.
--- NOTE | 2020-12-03 19:00 | NUR ---
GPS OVERFLOW RN OPENING NOTES RECEIVED PATIENT IN BED AWAKE ALERT AND ORIENTED X 4. PATIENT IS ON ROOM AIR. NO S/S OF RESPIRATORY DISTRESS NOTED. NO COMPLAIN OF PAIN NOTED. NO AKATHASIA, TREMORS, SI/HI, NOTED. WILL CONTINUE TO MONITOR.
[2020-12-03] MEDS: SIMVASTATIN 20 MG TABLET PO SCH (21:23)
--- NOTE | 2020-12-03 21:23 | NUR ---
PT C/O PAIN OF 4/10, PER PT REQUEST TYLENOL 650MG PO Q6HR PRN ADMINISTERED PER ORDER. WILL CONTINUE TO MONITOR.
[2020-12-03 23:09] VITALS: BP 158/74
--- NOTE | 2020-12-04 06:30 | NUR ---
VENETIAN BLIND MAKER CLOSING NOTE PT IS AWAKE IN BED AT THIS TIME.A/OX4, ABLE TO MAKE NEEDS KNOWN. PT IS BRP, STABLE ON ROOM AIR. NO SOB, S/S OF RESPIRATORY DISTRESS NOTED. PT DENIES PAIN OR DISCOMFORT AT THIS TIME. SKIN IS INTACT. NO AKATHASIA OR TREMORS NOTED. ALL NEEDS HAVE BEEN MET. SAFETY, SEIZURE, AND ASPIRATION PRECAUTIONS MAINTAINED AT ALL TIMES. BED IN LOWEST LOCKED POSITION WITH SIDE RAILS UPX2, HOB ELEVATED, CALL LIGHT AND TABLE WITHIN REACH. WILL ENDORSE TO ONCOMING NURSE FOR BRIDGER.
[2020-12-04] MEDS: ENSURE ENLIVE CHOC 237 ML CAN PO SCH ×2 (08:00→17:00)
--- NOTE | 2020-12-04 08:49 | NUR ---
RN NOTES PATIENT COMPLAINED OF HEADACHE AND REQUEST FOR TYLENOL 650MG P.O. WAS GIVEN WILL CONTINUE TO MONITOR.
[2020-12-04] MEDS: ACETAMINOPHEN 325 MG TABLET PO PRN ×2 (08:50→21:13)
[2020-12-04] MEDS: METOPROLOL TARTRATE 25 MG TABLET PO SCH ×2 (08:51→21:13)
[2020-12-04] MEDS: LORATADINE 10 MG TABLET PO SCH (08:52)
[2020-12-04] MEDS: AMLODIPINE BESYLATE 5 MG TABLET PO SCH (08:52)
[2020-12-04 09:24] VITALS: BP 137/81
[2020-12-04] MEDS: MAG HYDROX/AL HYDROX/SIMETH 30 ML UDC PO PRN (10:20)
[2020-12-04] MEDS: DULOXETINE HCL 30 MG CAPSULE.DR PO SCH (11:30)
[2020-12-04 16:00] VITALS: BP 145/77
[2020-12-04] MEDS: LORAZEPAM 0.5 MG TABLET PO PRN (18:01)
--- NOTE | 2020-12-04 18:40 | NUR ---
GPS/RN CLOSING NOTES PATIENT ON BED AWAKE ALERT AND ORIENTED X 4. PATIENT IS ON ROOM AIR. PATIENT IN NO APPARENT RESPIRATORY DISTRESS NOTED. NO COMPLAINED OF PAIN NOTED AT THIS TIME. NO SUICIDAL THOUGHTS NOTED. ALL DUE MEDICATIONS WAS GIVEN. BED IN LOWEST POSITION AND LOCKED. SIDERAILS UP X2. CALL LIGHT WITHIN REACH. WILL ENDORSED TO CROWNING HAMMER OPERATOR FOR BRIDGER.
[2020-12-04 20:00] VITALS: BP 139/83
[2020-12-04] MEDS: SIMVASTATIN 20 MG TABLET PO SCH (21:13)
--- NOTE | 2020-12-04 21:23 | NUR ---
PT C/O PAIN OF 4/10, PER PT REQUEST TYLENOL 650MG PO Q6HR PRN ADMINISTERED PER ORDER. WILL CONTINUE TO MONITOR.
--- NOTE | 2020-12-05 06:30 | NUR ---
MS/RN CLOSING NOTE PATIENT IS ON BED AT THIS TIME. AWAKE ALERT AND ORIENTED X4. PATIENT IS ON ROOM AIR. PATIENT IN NO APPARENT RESPIRATORY DISTRESS NOTED. NO COMPLAINED OF PAIN NOTED AT THIS TIME. ABLE TO MAKE NEEDS KNOWN. AMBULATORY. INVESTIGATIONAL DRUGS ADMINISTERED, NO ADVERSE EFFECTS NOTED, DENIES SI/HI. ALL NEEDS MET AND ATTENDED WELL. WILL ENDORSE TO PUG MILL OPERATOR HELPER FOR BRIDGER NURSE. Addendum: 12/05/20 at 0715 by ROBBIN VASQUES RN MS/RN CLOSING NOTE PATIENT IS ON BED AT THIS TIME. AWAKE ALERT AND ORIENTED X4. PATIENT IS ON ROOM AIR. PATIENT IN NO APPARENT RESPIRATORY DISTRESS NOTED. NO COMPLAINED OF PAIN NOTED AT THIS TIME. ABLE TO MAKE NEEDS KNOWN., NO ADVERSE EFFECTS NOTED. ALL NEEDS MET AND ATTENDED WELL. WILL ENDORSE TO AM SHIFT FOR BRIDGER
--- NOTE | 2020-12-05 07:15 | NUR ---
GPS RN OPENING NOTES RECEIVED PATIENT ON BED AWAKE, ALERT AND ORIENTED X 4. PATIENT IS ON ROOM AIR. PATIENT IN NO APPARENT RESPIRATORY DISTRESS NOTED. NO COMPLAINED OF PAIN NOTED AT THIS TIME. NO SUICIDAL THOUGHTS NOTED. WILL CONTINUE TO MONITOR PATIENT.
[2020-12-05 08:00] VITALS: BP 149/72
[2020-12-05] MEDS: ENSURE ENLIVE CHOC 237 ML CAN PO SCH ×2 (08:00→17:00)
[2020-12-05] MEDS: AMLODIPINE BESYLATE 5 MG TABLET PO SCH (09:20)
[2020-12-05] MEDS: METOPROLOL TARTRATE 25 MG TABLET PO SCH ×2 (09:20→21:40)
[2020-12-05] MEDS: LORATADINE 10 MG TABLET PO SCH (09:20)
[2020-12-05] MEDS: ACETAMINOPHEN 325 MG TABLET PO PRN ×2 (09:22→21:42)
[2020-12-05] MEDS: MAG HYDROX/AL HYDROX/SIMETH 30 ML UDC PO PRN (10:35)
--- NOTE | 2020-12-05 12:10 | NUR ---
GPS RN NOTE PATIENT SEEN BY DR. CORDON. PATIENT REMAINS STABLE WITH NO UNTOWARD BEHAVIOR. WILL CONTINUE TO MONITOR PATIENT.
[2020-12-05] MEDS: DULOXETINE HCL 30 MG CAPSULE.DR PO SCH (12:37)
--- NOTE | 2020-12-05 13:25 | NUR ---
RN NOTE PATIENT TRANSFERRED TO GPS. IN STABLE CONDITION. PATIENT TRANSPORTED VIA WHEELCHAIR ACCOMPANIED BY 2 NURSES. PATIENT ENDORSED TO GPS NURSE KASSIE. ENDORSED ACCORDINGLY.
--- NOTE | 2020-12-05 13:30 | NUR ---
RN-NOTES RECEIVED PATIENT FROM [facility], PATIENT A/O X3 ,CALM,NO ACUTE DISTRESS NOTED. PATIENT ABLE TO AMBULATE WITH STEADY GAIT. ALL BELONGINGS WAS KEPT IN THE ROOM LOCKER.
[2020-12-05 16:00] VITALS: BP 143/78
[2020-12-05] MEDS: LORAZEPAM 0.5 MG TABLET PO PRN (18:29)
--- NOTE | 2020-12-05 18:30 | NUR ---
RN-NOTES PATIENT REQUESTING ATIVAN,STATED" ATIVAN WILL CALM ME AND RELAX ME".ATIVAN 0.5MG P.O GIVEN PRN ORDER. WILL CONT. MONITORING FOR SAFETY AND BEHAVIOR AND WILL ENDORSE TO INCOMING NURSE FOR CONTINUITY OF CARE.
--- NOTE | 2020-12-05 19:30 | NUR ---
GPS RN NOTE, RECEIVED PATIENT AWAKE AND IN BED, NO S/S OR COMPLAINTS OF PAIN AT THIS TIME. PATIENT IS DISPLAYING NO S/S OF APPARENT DISTRESS AT THIS TIME. PATIENT BREATHING IS UNLABORED WITH EQUAL RISE AND FALL OF THE CHEST. PATIENT IS ALERT AND ORIENTED X 3 ON ROOM AIR WITH A SPO2 98%. PATIENT IS COMPLIANT WITH MEDICATIONS, MAKES NEEDS KNOWN, CALM, AND COOPERATIVE. PATIENT DENIES SUICIDAL AND HOMICIDAL IDEATIONS AT TIME. PATIENT EDUCATED ON THE USE OF THE CALL PATEL. PATIENT BED SIDE RAILS UP X 2 FOR SAFETY. PATIENT BED IS LOCKED, LOW, WITH BED ALARM ON. WILL CONTINUE TO MONITOR THIS PATIENT Q15 MINUTES WITH THE HELP OF STAFF TO MAINTAIN SAFETY.
[2020-12-05 20:00] VITALS: BP 155/74
[2020-12-05] MEDS: SIMVASTATIN 20 MG TABLET PO SCH (21:40)
--- NOTE | 2020-12-05 21:42 | NUR ---
GPS RN NOTE, PATIENT HAS A COMPLAINT OF RIGHT WRIST PAIN AT 5 OUT OF 10 ON THE PAIN SCALE AND IS REQUESTING TYLENOL AT THIS TIME. PATIENT VITAL SIGNS ARE STABLE. GAVE TYLENOL 650MG PO Q6HR PRN ORDERED. WILL REASSESS PAIN AND I WILL CONTINUE TO MONITOR THIS PATIENT WITH THE HELP OF STAFF.
[2020-12-06 08:00] VITALS: BP 149/81
[2020-12-06] MEDS: ENSURE ENLIVE CHOC 237 ML CAN PO SCH (08:00)
[2020-12-06] MEDS: METOPROLOL TARTRATE 25 MG TABLET PO SCH (08:12)
[2020-12-06] MEDS: AMLODIPINE BESYLATE 5 MG TABLET PO SCH (08:12)
[2020-12-06] MEDS: LORATADINE 10 MG TABLET PO SCH (08:12)
[2020-12-06] MEDS: MAG HYDROX/AL HYDROX/SIMETH 30 ML UDC PO PRN (08:28)
[2020-12-06] MEDS: ACETAMINOPHEN 325 MG TABLET PO PRN (08:29)
--- NOTE | 2020-12-06 11:20 | NUR ---
SS NOTE: BRITTNEY notified by NurseVarun that patient expressed wanting to be discharged back to [facility] today. Per Varun Ahumada is agreeable to D/C today. SW left [facility] a voicemail notifying them of this. SW will follow up with D/C planning.
[2020-12-06] MEDS: DULOXETINE HCL 30 MG CAPSULE.DR PO SCH (12:28)
--- NOTE | 2020-12-06 14:21 | NUR ---
Dr. Ahumada gave a verbal to discharge pt. to [facility], to continue same meds including prn and to follow up with psych and medical doctors. Dr. Bloom made aware of the discharge and reconciled meds, to continue same meds including prn. Belongings ready, discharge papers ready. Pt. without distress, denies suicidal and homicidal.
--- NOTE | 2020-12-06 14:54 | NUR ---
D/C NOTE: Pt. will be discharged back to [facility] ([facility]) [place] [address] [place] [address]; ([phone]). Pt will be transported via [facility] at 5 PM. Pt. does not have a responsible republican to be notified. Upon discharge, pt. appears to be in a dysphoric mood and presented with a calm affect. Pt. denies both suicidal and homicidal ideation as well as auditory and visual hallucinations. Pt appears to be alert and oriented x4 (time, place, situation and self). Pt. is ambulatory with steady gait. Pt appears to be well-groomed and appropriately dressed. Pt will continue to be under the care of psychiatrist, Dr. Arredondo, located at [address] [address]; and pegger, Dr. Serrano, located at [address] [place] [address]; . The Choice of vendor form and the multidisciplinary exit care form was done, printed, signed, and given to the patient.
--- NOTE | 2020-12-06 15:37 | NUR ---
Report given to Andrei over the facility
[2020-12-06 16:00] VITALS: BP 132/67
--- NOTE | 2020-12-06 17:25 | NUR ---
Pt. left the unit with belongings via ambulance and transported via a gurney. Left without distress, v/s taken: BP 138/75, TX 76,, RR 18, temp 97.7 and oxygen sat 95%.
== END 2020-12-06 17:25 | DRG 885 ==
LOC: ER 21:51 → GPS 11-29 01:53 → GPSOV 12-02 20:35 → GPS 12-05 13:41
PROVIDERS: ADMIT Psychiatry & Neurology Psychosomatic Medicine; ATTEND Nurse Practitioner Acute Care
DX: F33.2 Major depressive disorder, recurrent severe without psychotic features (principal); N17.9 Acute kidney failure, unspecified; E44.0 Moderate protein-calorie malnutrition; Z68.1 Body mass index [BMI] 19.9 or less, adult; F29 Unspecified psychosis not due to a substance or known physiological condition; F41.9 Anxiety disorder, unspecified; Z20.822 Contact with and (suspected) exposure to COVID-19; F43.10 Post-traumatic stress disorder, unspecified; D63.8 Anemia in other chronic diseases classified elsewhere; E78.5 Hyperlipidemia, unspecified; G62.9 Polyneuropathy, unspecified; K21.9 Gastro-esophageal reflux disease without esophagitis; M19.90 Unspecified osteoarthritis, unspecified site; Z91.14 Patient's other noncompliance with medication regimen; F10.11 Alcohol abuse, in remission; J45.909 Unspecified asthma, uncomplicated; I10 Essential (primary) hypertension
CPT/HCPCS: 36415; 80048-TC; 80061-TC; 80076-TC; 82962-TC; 85025-TC; 87081-TC; 97112-TC; 97116-TC; 97530-TC; C9803; G0480; Q0162

== ENCOUNTER 2021-02-18 10:38 | Outpatient (CLI) | payer MEDICARE, OTHER ==
[~2021-02-18 10:38] MED LIST changes: -LISI10TA29 PO; +LORA-259 PO; +LORA10TA7 PO; +MAG-55 PO; +MAGN400O6 PO; +MELA5TAB PO; -NAPR-1009 PO; +ONDA4TAB5 PO; +OXYC20TA42 PO; -PANT40TA49 PO
== END 2021-02-18 23:59 | disposition home or self-care (01) ==
LOC: MSC 10:38
PROVIDERS: ATTEND Internal Medicine
DX: M19.90 Unspecified osteoarthritis, unspecified site (principal); Z79.891 Long term (current) use of opiate analgesic; G62.9 Polyneuropathy, unspecified; F41.8 Other specified anxiety disorders; D64.9 Anemia, unspecified; I10 Essential (primary) hypertension; K21.9 Gastro-esophageal reflux disease without esophagitis; Z88.5 Allergy status to narcotic agent; Z88.8 Allergy status to other drugs, medicaments and biological substances

== ENCOUNTER 2021-04-18 10:00 | Outpatient (CLI) | payer MEDICARE, OTHER ==
[2021-04-18 11:12] LABS: BASOPHILS # (AUTO) 0.1 K/uL (0.0-0.2); BASOPHILS % (AUTO) 0.9 % (0.0-2.0); HEMATOCRIT 41 % (33-45); HEMOGLOBIN 13.5 g/dL (11.5-14.8); LYMPHOCYTES % (AUTO) 26.5 % (20.0-44.0); MEAN CORPUSCULAR HGB CONC 33 g/dl (31.0-36.0); MEAN CORPUSCULAR VOLUME 92 fL (82-100); MONOCYTES # (AUTO) 0.5 K/uL (0.1-1.30); NEUTROPHILS # (AUTO) 4.5 K/uL (1.8-8.9); NEUTROPHILS % (AUTO) 60.6 % (43.0-81.0); PLATELET COUNT (AUTO) 427 K/uL (150-450); RED BLOOD CELL COUNT(AUTO) 4.39 MIL/uL (4.0-5.2); WHITE BLOOD COUNT (AUTO) 7.5 K/uL (4.3-11.0)
[2021-04-18 11:25] LABS: BILIRUBIN,URINE NEGATIVE (NEGATIVE); COLOR,URINE YELLOW (YELLOW); LEUKOCYTE ESTERASE ,URINE NEGATIVE (NEGATIVE); NITRITE, URINE POSITIVE (NEGATIVE); PROTEIN,URINE NEGATIVE (NEGATIVE); UGLUCOSE NEGATIVE (NEGATIVE); UROBILINOGEN,URINE 0.2 EU/dL (0.2)
[2021-04-18 11:28] LABS: ALBUMIN 4.3 g/dL (3.4-5.0); BILIRUBIN,TOTAL 0.2 mg/dL (0.2-1.0); CALCIUM, SERUM 9.4 mg/dL (8.5-10.1); CREATININE 1.1 mg/dL (0.6-1.3); POTASSIUM 4.3 mmol/L (3.5-5.1); TOTAL PROTEIN, SERUM 8.3 g/dL (6.4-8.2)
[2021-04-18 11:39] LABS: BACTERIA,URINE Few /HPF (None Seen); RBC,URINE 0-2 /HPF (0-2); SQUAMOUS EPITHELIAL CELL,UR Few /HPF (None Seen); WBC,URINE 0-2 /HPF (0-3)
== END 2021-04-18 23:59 | disposition home or self-care (01) ==
LOC: MSC 10:00
PROVIDERS: ATTEND Internal Medicine
DX: Z01.818 Encounter for other preprocedural examination (principal); M19.019 Primary osteoarthritis, unspecified shoulder; G62.9 Polyneuropathy, unspecified; F32.A Depression, unspecified; F41.8 Other specified anxiety disorders; I10 Essential (primary) hypertension; E78.5 Hyperlipidemia, unspecified; Z79.899 Other long term (current) drug therapy
CPT/HCPCS: 36415; 71045; 80053; 81001; 85025; 85730; 87086; 93005; G0463

== ENCOUNTER 2021-07-28 13:10 | Outpatient (CLI) | payer MEDICARE, OTHER ==
[2021-07-28] MEDS ORDERED: TUBERCULIN,PURIF.PROT.DERIV. 5 TU/0.1 ML VIAL ID ONE (13:15)
--- NOTE | 2021-07-28 16:01 | NUR ---
pt came for TB skin testing for screening required by [facility] planning to go to live in. Orders obtained from Dr. Serrano. He is going to read it in 48/72 hrs. the tuberculin purif. deriv 0.1 ml is injected under the skin in left medial side of forearm. pt tolerated procedure well. BP 121/65, HR 65 RR 17 upon arrival.
== END 2021-07-28 23:59 | disposition home or self-care (01) ==
LOC: MSC 13:10
PROVIDERS: ATTEND Internal Medicine
DX: Z11.1 Encounter for screening for respiratory tuberculosis (principal)
CPT/HCPCS: 86580-TC

== ENCOUNTER 2021-07-31 11:15 | Outpatient (CLI) | payer MEDICARE, OTHER ==
--- NOTE | 2021-07-31 11:46 | NUR ---
at 1125 pt present in the clinic for the TB testing. the area of the left inner arm appears not reactive. the TB test is negative. Dr. Serrano did the reading. thank you
== END 2021-07-31 23:59 | disposition home or self-care (01) ==
LOC: WOU 11:15 → MSC 23:59
PROVIDERS: ATTEND Internal Medicine
DX: R76.11 Nonspecific reaction to tuberculin skin test without active tuberculosis (principal)